=== PATIENT | male | born 2000 | race Caucasian/White ===

== ENCOUNTER 2025-10-25 01:03 | Inpatient (IN) | payer MEDICAID ==
[2025-10-25] VITALS (48 sets, daily range): BP systolic 109–142; BP diastolic 61–109; PULSE 94–132; RESP 15–29; TEMP 36.696–38; O2SAT 93–99
[~2025-10-25] VITALS: Ht 165.1 cm; Wt 81.6 kg
[2025-10-25] MEDS: SODIUM CHLORIDE 0.9% 1,000 ML IV ONE (01:54)
[2025-10-25] MEDS: VISCOUS LIDOCAINE 2% 15 ML UDC MM ONE (01:59)
[2025-10-25] MEDS: MAGNESIUM/ALUMINUM HYDROXIDE/SIMETHICONE 30ML UDC PO ONE (01:59)
[2025-10-25] MEDS: KETOROLAC 15MG/ML VIAL IV ONE (02:00)
[2025-10-25] MEDS: ONDANSETRON HCL 4MG/2ML INJ IV ONE (02:00)
[2025-10-25 03:37] LABS: BASOPHILS % 0.8 % (0.0-2.0); EOSINOPHILS % 6.1 % (0.0-5.0); HEMATOCRIT. 34.5 % (42.0-52.0); HEMOGLOBIN. 11.5 g/dL (14.0-18.0); LYMPHOCYTES % 32.9 % (20.0-50.0); MEAN PLATELET VOLUME 9.6 fl (7.4-10.4); MONOCYTES % 5.4 % (2.0-8.0); NEUTROPHILS % 54.8 % (40.0-76.0); PLATELET 314 x1000/uL (130-400); RED BLOOD CELL COUNT 4.07 mill/uL (4.7-6.1); RED CELL DISTRIBUTION WIDTH 15.5 % (11.6-14.6)
[2025-10-25] MEDS: MORPHINE SULFATE 4 MG/ML INJ (FOR IV/IM USE) IV ONE (05:00)
[2025-10-25] MEDS ORDERED: MAGNESIUM 2 G PREMIX 50 ML IV PRN (05:45)
[2025-10-25] MEDS ORDERED: POTASSIUM CHLORIDE 40 MEQ in SODIUM CHLORIDE 0.9% 230 ML IV PRN (05:45)
[2025-10-25] MEDS ORDERED: BLOOD SUGAR DIAGNOSTIC STRIP TEST PRN ×2 (05:45→07:30)
[2025-10-25] MEDS ORDERED: SODIUM PHOSPHATE 15 MMOL in SODIUM CHLORIDE 0.9% 245 ML IV PRN (05:45)
[2025-10-25] MEDS ORDERED: DEXTROSE 50% WATER 50ML SYRINGE IV PRN ×2 (05:45→07:30)
[2025-10-25] MEDS: KCL 20MEQ/100ML PREMIX 100 ML IV SCH (05:45)
[2025-10-25] MEDS ORDERED: IPRATROPIUM/ALBUTEROL 0.5-3(2.5)MG/3ML NEB NEB PRN (05:45)
[2025-10-25] MEDS ORDERED: DEXT 5%/0.9% NACL 1,000 ML IV SCH (05:45)
[2025-10-25] MEDS ORDERED: KCL 20MEQ/100ML PREMIX 100 ML IV PRN (05:45)
[2025-10-25 06:06] LABS: BG BASE EXCESS -3.3 mmol/L (-2.0-3.0); BG CARBOXYHEMOGLOBIN 0.4 % (0.5-1.5); BG DEOXYHEMOGLOBIN 1.6 % (0.0-5.0); BG FRACTION INSPIRED OXYGEN 21; BG HCO3 ACT 20.2 mmol/L (21.0-28.0); BG METHEMOGLOBIN 0.1 % (0.5-1.5); BG OXYGEN SATURATION 98.4 % (94.0-98.0); BG OXYHEMOGLOBIN 97.9 % (94.0-98.0); BG PCO2 30.8 mmHg (35.0-48.0); BG PH 7.434 (7.350-7.450); BG PO2 107.0 mmHg (83.0-108.0); BG SAMPLE SITE RIGHT RADIAL; BG TOTAL HEMOGLOBIN 10.4 g/dL (13.5-17.5); BG VENT MODE ROOM AIR
[2025-10-25] MEDS: BLOOD SUGAR DIAGNOSTIC STRIP TEST SCH ×2 (06:06→09:00)
[2025-10-25] MEDS: SODIUM CHLORIDE 0.9% 1,000 ML IV SCH ×2 (06:08→19:30)
[2025-10-25] MEDS ORDERED: HYDROMORPHONE HCL/PF 2MG/ML INJ IV PRN (06:30)
[2025-10-25 06:56] LABS: CREATININE 0.8 mg/dL (0.6-1.3); UREA NITROGEN BLOOD 9 mg/dL (9-23)
[2025-10-25 06:57] LABS: PROTEIN TOTAL 6.2 g/dL (6.0-8.3)
[2025-10-25 06:58] LABS: ASPARTATE AMINOTRANSFERASE 17 IU/L (<34)
[2025-10-25 06:59] LABS: BILIRUBIN DIRECT < 0.1 mg/dL (<=3.0); BILIRUBIN TOTAL < 0.2 mg/dL (0.1-1.0)
[2025-10-25] MEDS ORDERED: IOHEXOL-300 100 ML BOTTLE ONE (07:05)
[2025-10-25] MEDS ORDERED: INSULIN REGULAR 100U/100ML PMX 100 ML IV SCH (07:30)
[2025-10-25] MEDS ORDERED: NALOXONE HCL 0.4MG/ML VIAL IV PRN (08:00)
[2025-10-25 08:05] LABS: CLARITY URINE CLEAR (CLEAR); COLOR URINE YELLOW (YELLOW); GLUCOSE URINE 3+ (NEGATIVE); KETONES URINE 4+ (NEGATIVE); LEUKOCYTE ESTERASE URINE NEGATIVE (NEGATIVE); NITRITE URINE NEGATIVE (NEGATIVE); OCCULT BLOOD URINE NEGATIVE (NEGATIVE); PH URINE 5.5 (4.5-8.0); PROTEIN URINE 1+ (NEGATIVE); SPECIFIC GRAVITY URINE 1.055 (1.005-1.030); UROBILINOGEN URINE 0.2 E.U./dL (0.2-1.0)
[2025-10-25 08:14] LABS: *AMPHETAMINES SCREEN URINE NEGATIVE (NEGATIVE); *BARBITURATES SCREEN URINE NEGATIVE (NEGATIVE); *BENZODIAZEPINES SCREEN URINE NEGATIVE (NEGATIVE); *COCAINE SCREEN URINE NEGATIVE (NEGATIVE); CANNABINOID URINE SCREEN NEGATIVE (NEGATIVE); ECSTASY MDMA SCREEN URINE NEGATIVE (NEGATIVE); METHADONE URINE SCREEN NEGATIVE (NEGATIVE); OPIATES URINE SCREEN PRESUMPTIVE POSITIVE (NEGATIVE); PHENCYCLIDINE URINE SCREEN NEGATIVE (NEGATIVE)
[2025-10-25 08:50] LABS: BACTERIA URINE NONE SEEN; SQUAMOUS EPITHELIAL CELL URINE RARE /lpf (RARE/1+)
[2025-10-25 08:51] LABS: RBC URINE NONE SEEN /hpf (0-2); WBC URINE NONE SEEN /hpf (0-2)
[2025-10-25 09:38] LABS: BG BASE EXCESS -6.6 mmol/L (-2.0-3.0); BG CARBOXYHEMOGLOBIN 0.5 % (0.5-1.5); BG DEOXYHEMOGLOBIN 1.7 % (0.0-5.0); BG HCO3 ACT 17.5 mmol/L (21.0-28.0); BG METHEMOGLOBIN 0.2 % (0.5-1.5); BG OXYGEN SATURATION 98.3 % (94.0-98.0); BG OXYHEMOGLOBIN 97.6 % (94.0-98.0); BG PCO2 30.2 mmHg (35.0-48.0); BG PH 7.381 (7.350-7.450); BG PO2 112.9 mmHg (83.0-108.0); BG SAMPLE SITE RIGHT RADIAL; BG TOTAL HEMOGLOBIN 10.9 g/dL (13.5-17.5); BG VENT MODE ROOM AIR
[2025-10-25 09:41] LABS: CREATININE 0.7 mg/dL (0.6-1.3); UREA NITROGEN BLOOD 7 mg/dL (9-23)
[2025-10-25] MEDS: HEPARIN 5000 UNITS/ML VIAL SUBCUT SCH (09:41)
[2025-10-25] MEDS: PANTOPRAZOLE SODIUM 40 MG/VIAL IV SCH (09:41)
[2025-10-25 09:43] LABS: PHOSPHORUS 3.5 mg/dL (2.5-4.9)
[2025-10-25] MEDS: MAGNESIUM 2 G PREMIX 50 ML IV PRN (11:10)
[2025-10-25] MEDS: KCL 20MEQ/100ML PREMIX 100 ML IV PRN (11:10)
[2025-10-25] MEDS: DEXT 5%/0.9% NACL 1,000 ML IV SCH (11:11)
[2025-10-25] MEDS: INSULIN REGULAR (DRIP) 100 UNITS in SODIUM CHLORIDE 0.9% 99 ML IV SCH (15:24)
[2025-10-25] MEDS: HYDROMORPHONE HCL/PF 2MG/ML INJ IV SCH (15:29)
[2025-10-25] MEDS: HYDROCODONE/ACETAMINOPHEN 10/325MG TABLET PO PRN (15:34)
[2025-10-25] MEDS: KETOROLAC 30MG/ML VIAL IV PRN (15:34)
[2025-10-25 19:03] LABS: PHOSPHORUS 1.6 mg/dL (2.5-4.9)
[2025-10-25] MEDS: POTASSIUM CHLORIDE 40 MEQ in SODIUM CHLORIDE 0.9% 230 ML IV PRN (19:53)
[2025-10-25] MEDS: ACETAMINOPHEN 325MG TABLET PO PRN (20:28)
[2025-10-25] MEDS: SODIUM PHOSPHATE 15 MMOL in SODIUM CHLORIDE 0.9% 245 ML IV PRN (21:12)
[2025-10-26] VITALS (64 sets, daily range): BP systolic 104–133; BP diastolic 58–88; PULSE 106–143; RESP 16–28; TEMP 36.6–38.4; O2SAT 95–98
[2025-10-26] MEDS: LACTATED RINGERS 1,000 ML IV SCH (02:22)
[2025-10-26 04:52] LABS: PHOSPHORUS 3.1 mg/dL (2.5-4.9)
[2025-10-26] MEDS: MAGNESIUM 2 G PREMIX 50 ML IV PRN (05:04)
[2025-10-26 06:08] LABS: CREATININE 0.6 mg/dL (0.6-1.3); UREA NITROGEN BLOOD < 5 mg/dL (9-23)
[2025-10-26] MEDS: CEFTRIAXONE 1GM/50ML 50 ML IV SCH (08:47)
[2025-10-26 09:54] LABS: PHOSPHORUS 1.8 mg/dL (2.5-4.9)
[2025-10-26] MEDS: SODIUM PHOSPHATE 15 MMOL in SODIUM CHLORIDE 0.9% 245 ML IV PRN (10:29)
[2025-10-26] MEDS ORDERED: DEXTROSE 50% WATER 50ML SYRINGE IV PRN (11:45)
[2025-10-26] MEDS: BLOOD SUGAR DIAGNOSTIC STRIP TEST SCH (12:00)
[2025-10-26] MEDS: INSULIN LISPRO 100 UNITS/ML SUBCUT SCH (12:00)
[2025-10-26] MEDS: INSULIN GLARGINE 100 UNITS/ML SUBCUT NR (12:18)
[2025-10-26 13:49] LABS: PHOSPHORUS 2.2 mg/dL (2.5-4.9)
[2025-10-26 16:04] LABS: PHOSPHORUS 2.5 mg/dL (2.5-4.9)
[2025-10-26] MEDS ORDERED: INSULIN GLARGINE 100 UNITS/ML SUBCUT SCH (22:00)
== END 2025-10-26 16:14 | disposition left against medical advice (07) | DRG 420 ==
LOC: ER 01:03 → EDBEDREQSVC 05:20 → EDBEDREQTM 05:20 → EDBEDREQ 05:20 → MICUNO 05:33 → EDBEDREQSVC 05:35 → EDBEDREQTM 05:35 → ENRESERV 07:11
PROVIDERS: ADMIT Internal Medicine; ATTEND Internal Medicine
DX: E11.10 Type 2 diabetes mellitus with ketoacidosis without coma (principal); K85.80 Other acute pancreatitis without necrosis or infection; K76.0 Fatty (change of) liver, not elsewhere classified; R16.0 Hepatomegaly, not elsewhere classified; E87.1 Hypo-osmolality and hyponatremia; E87.6 Hypokalemia; K52.9 Noninfective gastroenteritis and colitis, unspecified; Z79.899 Other long term (current) drug therapy; Z53.29 Procedure and treatment not carried out because of patient's decision for other reasons
CPT/HCPCS: 36415; 36600; 74177; 80048; 80051; 80076; 80305; 81003; 82150; 82375; 82805; 82962; 83036; 83735; 83930; 84100; 84145; 85025; 99291; J0696; J1171; J1644; J1815; J1885; J2270; J2405; J2470; J3475; J3480; J3490; J7030; J7050; Q9967